=== PATIENT | male | born 1970 ===

== ENCOUNTER 2025-02-04 18:16 | Emergency (ER) | payer OTHER ==
[~2025-02-04] VITALS: Ht 188 cm; Wt 97.5 kg
[~2025-02-04 18:16] MED LIST: NON
[2025-02-04] MEDS ORDERED: ROSUVASTATIN CA10 MG PO (18:21)
[2025-02-04 19:25] LABS: BASO % 0.7 % (0.1-1.2); EOS # 0.17 (0.04-0.54); EOS % 2.8 % (0.7-7.0); LYMPH # 1.84 (1.18-3.74); LYMPH % 30.8 % (19.3-53.1); MEAN PLATELET VOLUME 8.60 fl (9.4-12.4); MONO # 0.40 (0.24-0.82); MONO % 6.7 % (4.7-12.5); NEUT # 3.49 (1.56-6.13); NEUT % 58.5 % (34.0-71.1); RED CELL DISTRIBUTION WIDTH 12.7 % (11.6-14.4)
[2025-02-04 19:55] LABS: ALT/SGPT 27.0 U/L (12-78); AST/SGOT 18.0 U/L (15-37); BILIRUBIN TOTAL 0.93 mg/dL (0.3-1.2); BUN CREA RATIO 14.0 (7.0-25.0); CREATININE SERUM 0.97 mg/dL (0.70-1.30); GFR 80.06; GLOBULINA 3.3 G/DL (2.4-3.5); GLUCOSE FASTING 140.0 mg/dL (65-100); OSMOLALITY SERUM 288.0 MOSM/KG (275-295)
[2025-02-04] MEDS ORDERED: METHYLPREDNISOLONE SOD SUCC 125 MG VIAL IM STA (20:02)
== END 2025-02-04 20:36 | disposition home or self-care (01) ==
LOC: ER 18:16
PROVIDERS: General Practice
DX: L50.9 Urticaria, unspecified (principal); R06.02 Shortness of breath; R07.9 Chest pain, unspecified; R21 Rash and other nonspecific skin eruption